=== PATIENT | male | born 1995 | race Caucasian/White ===

== ENCOUNTER → 2017-03-29 | Outpatient (CLI) | payer OTHER | LOC: OD 08:49 | PROVIDERS: ATTEND Otolaryngology | DX: J30.9 Allergic rhinitis, unspecified (principal) | CPT/HCPCS: 36415; 82785 ==

== ENCOUNTER 2017-04-25 07:19 | Day surgery (SDC) | payer OTHER ==
[2017-04-25] MEDS ORDERED: CEFAZOLIN 2 GM/D5W RTU 2 GM/50 ML RTUPB IV PRN (07:46)
[2017-04-25] MEDS ORDERED: MIDAZOLAM 2 MG/2 ML INJ ONE (08:19)
[2017-04-25] MEDS ORDERED: ONDANSETRON HCL INJ/PF 4 MG/2 ML SDV ONE (08:19)
[2017-04-25] MEDS ORDERED: FENTANYL CITRATE INJ/PF 100 MCG/2 ML AMPUL ONE ×2 (08:19)
[2017-04-25] MEDS ORDERED: PROPOFOL INJ 200 MG/20 ML VIAL IV ONE (08:20)
[2017-04-25] MEDS ORDERED: SUCCINYLCHOLINE CHLORIDE INJ 200 MG/10 ML VIAL ONE (08:20)
[2017-04-25] MEDS ORDERED: DEXAMETHASONE SOD PHOS INJ 10 MG/1 ML VIAL ONE (08:20)
[2017-04-25] MEDS ORDERED: BUPIVACAINE HCL 0.5%-EPI 1:200000 INJ/PF 30 ML VIAL ONE (08:33)
[2017-04-25] MEDS ORDERED: OXYMETAZOLINE HCL 0.05% NASAL SPRAY 15 ML BOTTLE ONE (08:33)
[2017-04-25] MEDS ORDERED: LIDOCAINE 1%/EPINEPHRINE INJ 20 ML VIAL ONE (08:33)
[2017-04-25] MEDS ORDERED: MINERAL OIL (STERILE) 10 ML VIAL ONE (09:38)
--- NOTE | 2017-04-26 07:58 | [facility]ARE OPERATIVE REPORT E ---
[facility] Operative Report NAME: LUCY LANG AGE: 22Y DATE OF SURGERY: 04/25/2017 ROOM: PREOPERATIVE DIAGNOSES: 1. NASAL SEPTAL DEVIATION ACQUIRED. 2. BILATERAL INFERIOR TURBINATE HYPERTROPHY. 3. CHRONIC NASAL DYSPNEA. POSTOPERATIVE DIAGNOSES: 1. NASAL SEPTAL DEVIATION ACQUIRED. 2. BILATERAL INFERIOR TURBINATE HYPERTROPHY. 3. CHRONIC NASAL DYSPNEA. OPERATION PERFORMED: 1. Septoplasty. 2. Bilateral inferior turbinate reduction using a submucous resection technique. SURGEON: TAI MONTELONGO D.O. ANESTHESIA: General endotracheal. ANESTHESIA STAFF: Alyssa CASPER. ESTIMATED BLOOD LOSS: 15 mL. FLUIDS: *------*. COMPLICATIONS: None. DRAINS: None. SPONGE COUNT: Verified. NEEDLE COUNT: Verified. MATERIALS FORWARDED SPECIMEN: None. FINDINGS: 1. Right nasal septal deviation involving bone and cartilage with bilateral maxillary crest spurs; left greater than right, and a right septal spur. There was excessive caudal septal cartilage noted along the right side. 2. Bilateral inferior turbinate hypertrophy. 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 The patient had been referred for, and he complained of a history of chronic nasal dyspnea. The patient reports a history of nasal trauma. The patient has desired to undergo nasal surgery to improve functional nasal air flow. Clinically, the findings are as noted above. After extensive discussion with the patient, recommendation and plan was made to proceed with a septoplasty and bilateral inferior turbinate reduction. The procedures and all of their risks and complications were all discussed with the patient. He voiced an understanding of the described surgical plan, agreed to proceed, and consent was obtained. PROCEDURE: The patient was taken to the main operating room and placed on the operating room table in the supine position. Appropriate monitors were placed. Using mask and IV access, general anesthesia was induced. The patient was then transorally intubated without difficulty. The patient was positioned and prepped for nasal surgery. He underwent a nasal examination with injection of local anesthetic with epinephrine to establish a nasal block. Two Afrin-soaked neuro patties were placed per nasal passage. The patient was then draped in the usual fashion for nasal surgery. A right hemitransfixion incision was made followed by elevation of the mucosal flaps in a subperichondrial and subperiosteal manner. The bony cartilaginous junction was identified, divided, and the most deviated portions of bone and cartilage were removed without difficulty. There was greater than 2 x 2 cm cartilaginous L-Strut that was preserved. The cartilaginous portion of the septum was freed from the maxillary crest. This allowed the maxillary crest spurs and septal spur to be removed without difficulty using a V-chisel and double-action scissors without difficulty. The excessive septal cartilage on the right was trimmed. At this point, the bilateral inferior turbinate reduction was addressed in the following manner: A turbinate bipolar wand was used to create soft tissue lesions at 2 locations on each side. Larry scissors and a Milford elevator was used to enter the anterior aspect of each inferior turbinate and elevate tissue in a submucosal plane. At this point, the turbinate microdebrider system at a setting of 1500 RPM was used to perform a submucosal resection on each side. A Cheri was also used to debulk the prominent anterior turbinate bone on each side, approximately 1 cm sections, were addressed. This is followed by use of Milford elevator to outfracture each inferior turbinate. At this point, the caudal septal cartilage was repositioned and secured in the midline at the inferior nasal spine using 5-0 Prolene suture. The nose was next irrigated and thoroughly suctioned and there was adequate hemostasis noted. Cartilage that had been previously removed was placed back between the mucosal flaps and banked. The hemitransfixion incision was reapproximated with Chromic suture. Next, one Goodrich silicone nasal splint was placed per nasal passage and these were secured at the caudal aspect with 4-0 Prolene suture. The patient's nose was then cleaned and dried and he was returned to the anesthesia staff. He was allowed to emerge from general anesthesia and was extubated in the main operating room without difficulty. The patient was then transferred to the post-anesthesia recovery unit in stable condition. There were no complications. DICTATING PHYSICIAN: TAI MONTELONGO D.O. [id number] PHY#: [id number] ID: [id number] JOB#: [id number] ACCT: [id number] cc:TAI MONTELONGO D.O. >
== END 2017-04-25 12:24 | disposition home or self-care (01) ==
LOC: EDBD → SC 07:19
PROVIDERS: ATTEND Otolaryngology
PROC: 09BM4ZZ Excision of Nasal Septum, Percutaneous Endoscopic Approach (ICD-10-PCS; principal; 2017-04-25 08:30)
PROC: 09TL8ZZ Resection of Nasal Turbinate, Via Natural or Artificial Opening Endoscopic (ICD-10-PCS; 2017-04-25 08:30)
DX: J34.2 Deviated nasal septum (principal); J34.3 Hypertrophy of nasal turbinates; R06.09 Other forms of dyspnea; J30.9 Allergic rhinitis, unspecified; Z87.891 Personal history of nicotine dependence
CPT/HCPCS: 30520; 30140; J2250; J3490 ×3; J3010; J0330; J2405; J2704; J1100; J0690; 170